=== PATIENT | male | born 1945 | race Caucasian/White ===

== ENCOUNTER 2018-06-14 13:34 | Emergency (ER) | payer MEDICARE, OTHER ==
[2018-06-14 14:19] LABS: CHLORIDE,CL 106 mmol/L (98-107); SODIUM,NA 141 mmol/L (136-145)
[2018-06-14] MEDS ORDERED: traMADol 50 MG Tab PO ONE (14:20)
[2018-06-14] MEDS ORDERED: Sodium Chloride 0.9% 10 ML Syringe FLUSH PRN (14:21)
[2018-06-14] MEDS ORDERED: Meclizine 25 MG Tab PO ONE (14:21)
[2018-06-14] MEDS ORDERED: Sodium Chloride 0.9% 500 ML IV ONE (14:22)
--- NOTE | 2018-06-14 14:56 | EDM.PDOC ---
ED HPI GENERAL MEDICAL PROBLEM - General Chief Complaint: Eye Problems Stated Complaint: eye problem Time Seen by Provider: 06/14/18 13:45 Source of Information: Reports: Patient History Limitations: Reports: No Limitations - History of Present Illness INITIAL COMMENTS - FREE TEXT/NARRATIVE: Patient comes in complaining of 3/10 headache, bilateral, frontal as well as problems focusing vision. Has history of intermittent dizziness in past and takes PRN Meclizine for this. Patient says that he rarely needs this medication. Headache started around 12:30. He took 4 OTC Motrin around 7am this morning. Took an additional 4 tabs around 12:30. Patient hit head on hitch of truck two days ago when he was startled by an air hose going off near his left ear. Hit left side of head. No LOC. Has mild tenderness in that area but no hematoma or abrasion per patient. No report of nausea/emesis or other neuro changes. Patient has usual chronic aches/pains per self report. No new numbness/weaknes. Past medical history is overall minimal per patient. Has a "spot" on kidney and needed a stent at one point but does not know any more about that. No prescription medications. 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 Says symptoms improve when he holds his head in certain position, looking upwards, with neck slightly extended. Treatments MANAGER DISTRIBUTION: Reports: NSAIDS, Other (see below) Other Treatments MANAGER DISTRIBUTION: ibruprophen Frontal Head Pain Score (Numeric/FACES): 3 - Related Data Allergies Allergy/AdvReac Type Severity Reaction Status Date / Time No Known Allergies Allergy Verified 06/14/18 13:36 Home Meds: Home Meds Meclizine [Antivert] 25 mg PO Q6H PRN #30 tab 06/14/18 [Rx] traMADol [Ultram] 50 mg PO Q6H PRN #10 tab 06/14/18 [Rx] Past Medical History HEENT History: Reports: Other (See Below) (Intermittent dizziness/vertigo) Genitourinary History: Reports: Other (See Below) ("spot" on kidney) Musculoskeletal History: Reports: Osteoarthritis Social & Family History - Tobacco Use Smoking Status *Q: Never Smoker Second Hand Smoke Exposure: Yes - Caffeine Use Caffeine Use: Reports: Coffee Other Caffeine Use: 2 cups/day - Recreational Drug Use Recreational Drug Use: No ED ROS GENERAL - Review of Systems Review Of Systems: See Below Constitutional: Reports: No Symptoms HEENT: Reports: Vision Change. Denies: Ear Discharge, Ear Pain, Eye Pain, Rhinitis, Sinus Problem, Vertigo Respiratory: Reports: No Symptoms Cardiovascular: Denies: Chest Pain, Blood Pressure Problem, Dyspnea on Exertion , Edema, Orthopnea, Palpitations, Syncope GI/Abdominal: Reports: No Symptoms : Reports: No Symptoms Musculoskeletal: Reports: No Symptoms (no acute changes) Skin: Reports: No Symptoms. Denies: Wound, Lumps Neurological: Reports: Dizziness, Headache. Denies: Numbness, Paresthesia, Pre- Existing Deficit, Seizure, Syncope, Tingling, Tremors, Trouble Speaking, Difficulty Walking, Weakness, Change in Speech, Gait Disturbance Psychiatric: Reports: No Symptoms Hematologic/Lymphatic: Reports: No Symptoms ED EXAM GENERAL W FULL EYE - Physical Exam Exam: See Below Exam Limited By: No Limitations General Appearance: Alert, WD/WN, No Apparent Distress Eye Exam: Bilateral Eye: EOMI, Normal Fundi, PERRL Pupillary Size: Bilateral: 4 mm Comments: no nystagmus produced with head rotation, however this did trigger worsening sensation of lightheadedness and headache. Head: Atraumatic, Normocephalic, Other (mild tenderness left parietal scalp. No hematoma noted) Neck: Normal Inspection, Supple, Non-Tender, Full Range of Motion. No: Lymphadenopathy (L), Lymphadenopathy (R) Respiratory/Chest: No Respiratory Distress, Lungs Clear, Normal Breath Sounds, No Accessory Muscle Use Cardiovascular: Normal Peripheral Pulses, Regular Rate, Rhythm, No Edema, No Murmur GI/Abdominal: Normal Bowel Sounds, Soft, Non-Tender (Male) Exam: Deferred Rectal (Males) Exam: Deferred Back Exam: Normal Inspection Extremities: Normal Inspection, Normal Range of Motion, Non-Tender, No Pedal Edema, Normal Capillary Refill Neurological: Alert, Oriented, CN II-XII Intact, Normal Cognition, Normal Gait, Normal Reflexes (1/4 all limbs), No Motor/Sensory Deficits Psychiatric: Normal Affect, Normal Mood Skin Exam: Warm, Dry, Intact, Normal Color Course - Vital Signs Last Recorded V/S: Last Vital Signs Temp 36.7 C 06/14/18 13:36 Pulse 70 06/14/18 13:36 Resp 14 06/14/18 13:36 BP 115/77 06/14/18 13:36 Pulse Ox 95 06/14/18 13:36 - Orders/Labs/Meds Orders: Active Orders 24 hr Category Date Time Status Head wo Cont [CT] Stat Exams 06/14/18 13:55 Taken Sodium Chloride 0.9% [Saline Flush] Med 06/14/18 14:21 Ordered 10 ml FLUSH ASDIRECTED PRN Saline Lock Insert [OM.PC] Routine Oth 06/14/18 14:22 Ordered Medication Orders Sodium Chloride (Saline Flush) 10 ml FLUSH ASDIRECTED PRN PRN Reason: Keep Vein Open Labs: Laboratory Tests 06/14/18 06/14/18 Range/Units 14:00 14:00 WBC 6.9 (4.0-10.2) K/uL RBC 4.73 (4.33-5.41) M/uL Hgb 14.1 (13.1-16.8) g/dL Hct 40.9 (39.0-49.0) % MCV 86.5 (84.0-98.0) fL MCH 29.8 (28.2-33.3) pg MCHC 34.5 (31.7-36.0) g/dL RDW 14.4 H (11.2-14.1) % Plt Count 277 (150-350) K/uL Neut % (Auto) 48.0 (45.0-80.0) % Lymph % (Auto) 34.9 (10.0-50.0) % [place] % (Auto) 11.4 (2.0-14.0) % Eos % (Auto) 5.1 H (0.0-5.0) % Baso % (Auto) 0.6 (0.0-2.0) % Neut # (Auto) 3.31 (1.40-7.00) K/uL Lymph # (Auto) 2.41 (0.50-3.50) K/uL [place] # (Auto) 0.79 (0.00-1.00) K/uL Eos # (Auto) 0.35 (0.00-0.50) K/uL Baso # (Auto) 0.04 (0.00-0.20) K/uL Sodium 141 (136-145) mmol/L Potassium 4.2 (3.5-5.1) mmol/L Chloride 106 (98-107) mmol/L Carbon Dioxide 29.2 (21.0-32.0) mmol/L BUN 24 H (7-18) mg/dL Creatinine 1.27 H (0.51-1.17) mg/dL Est Cr Clr Drug Dosing TNP Estimated GFR (MDRD) 56 mL/min Glucose 93 (74-106) mg/dL Calcium 8.7 (8.5-10.1) mg/dL Total Bilirubin 0.3 (0.2-1.0) mg/dL AST 23 (15-37) U/L ALT 33 (12-78) U/L Alkaline Phosphatase 88 (46-116) IU/L Total Protein 6.8 (6.4-8.2) g/dL Albumin 3.4 (3.4-5.0) g/dL Meds: Medications Generic Name Dose Route Start Last Admin Trade Name Freq PRN Reason Stop Dose Admin Sodium Chloride 10 ml 06/14/18 14:21 Saline Flush FLUSH ASDIRECTED PRN Keep Vein Open Discontinued Medications Generic Name Dose Route Start Last Admin Trade Name Freq PRN Reason Stop Dose Admin Sodium Chloride 500 mls @ 500 mls/hr 06/14/18 14:22 06/14/18 14:43 Normal Saline IV 06/14/18 15:21 500 mls/hr .BOLUS ONE Administration Meclizine HCl 25 mg 06/14/18 14:21 06/14/18 14:27 Antivert PO 06/14/18 14:22 25 mg ONETIME ONE Administration Tramadol HCl 50 mg 06/14/18 14:20 06/14/18 14:27 Ultram PO 06/14/18 14:21 50 mg ONETIME ONE Administration - Radiology Interpretation Free Text/Narrative:: Unremarkable head CT CT Results Date: 06/14/18 CT Results Time: 14:40 - Re-Assessments/Exams Free Text/Narrative Re-Assessment/Exam: 06/14/18 15:03 Mild renal dysfunction noted on labs. 500ml fluid bolus given to patient. Meclizine and Tramadol also given. Patient denies Free Text/Narrative Re-Assessment/Exam: 06/14/18 15:34 Patient is feeling better. Currently has no headache. Vision is improved. 20/ 10 on eye exam. Given recent head bump today's visual complaint/headache is likely related to that incident. Cannot rule out mild concussion. Again, patient does have history of previous episodes of dizziness and this may be a re-triggering of that old problem. Soft tissue soreness from impact with trailer hitch may be trigger for intermittent headache which appears to be more pronounced on that left side. Have recommended to patient that he avoid driving for the next few days. Rest and adaquate hydration stressed. He is to follow up as needed for continuing or worsening problems. He is to follow up with his primary provider within the next few weeks to have renal function rechecked and to followup on the dizziness/head bump. Departure - Departure Time of Disposition: 15:51 Disposition: Home, Self-Care 01 Condition: Good Clinical Impression: Renal dysfunction, Dizziness, nonspecific Head contusion Qualifiers: Encounter type: initial encounter Contusion of head detail: scalp Qualified Code(s): S00.03XA - Contusion of scalp, initial encounter - Discharge Information *PRESCRIPTION DRUG MONITORING PROGRAM REVIEWED*: Not Applicable *COPY OF PRESCRIPTION DRUG MONITORING REPORT IN PATIENT SAIDA: Not Applicable Prescriptions: Meclizine [Antivert] 25 mg PO Q6H PRN #30 tab PRN Reason: Dizziness traMADol [Ultram] 50 mg PO Q6H PRN #10 tab PRN Reason: Pain Instructions: Head Injury, Adult, [id number], Dizziness, [id number], Chronic Kidney Disease, Adult, [id number] Forms: ED Department Discharge Additional Instructions: Avoid driving for the next 48 hours. See how your head/vision feel. If you continue to have intermittent dizziness you should NOT be driving. Follow up in ER or at clinic if you are feeling worse. You should also follow up with your own doctor within the next few weeks to get your kidney function rechecked. It was a little slow today compared to what is considered normal. Sometimes this happens when you are out working in the heat and get a bit dehydrated. This is why you were given the IV fluids today. However, if the function remains a bit slow, then you should avoid taking Motrin /ibuprofen as well as Aleve/naprosyn and other medications in the NSAID family as they are very hard on the kidneys. You may take Tylenol for your headache. You were given a few Tramadol to take for more severe pain. You may take Meclizine as needed to help with dizziness. You may have a bit of a concussion from hitting your head, however the headache may be due to soft tissue damage from hitting your head on the hitch. As you have had issues with dizziness in the past, it cannot be known if your recent problems are a flare up of your old dizziness or if it could be related to a mild concussion from the head bump. Again, watch for any changes in symptoms or new symptoms. - My Orders Last 24 Hours: My Active Orders 06/14/18 13:55 Head wo Cont [CT] Stat 06/14/18 14:21 Sodium Chloride 0.9% [Saline Flush] 10 ml FLUSH ASDIRECTED PRN 06/14/18 14:22 Saline Lock Insert [OM.PC] Routine - Assessment/Plan Last 24 Hours: My Active Orders 06/14/18 13:55 Head wo Cont [CT] Stat 06/14/18 14:21 Sodium Chloride 0.9% [Saline Flush] 10 ml FLUSH ASDIRECTED PRN 06/14/18 14:22 Saline Lock Insert [OM.PC] Routine
== END 2018-06-14 16:20 | disposition home or self-care (01) ==
LOC: LL.ED 13:34
DX: S00.03XA Contusion of scalp, initial encounter (principal); N28.9 Disorder of kidney and ureter, unspecified; R42 Dizziness and giddiness; W22.8XXA Striking against or struck by other objects, initial encounter
CPT/HCPCS: 36415; 70450; 80053; 85025; 96360; 99284; A9270-GY; J7040